=== PATIENT | male | born 1950 | race Caucasian/White ===

== ENCOUNTER → 2017-07-14 | Outpatient (CLI) | payer MEDICARE, OTHER ==
--- NOTE | 2017-07-14 14:42 | RADIOLOGY REPORT (SQ) ---
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 Additio nal selected color Doppler and spectral images recorded. LIMITATIONS: Large patient, midline bowel gas FINDINGS: PANCREAS: Midline pancreas unremarkable LIVER: No masses. Echotexture normal. LIVER VASCULATURE: Normal directional flow of the main portal vein and hepatic veins. GALLBLADDER: No stones. Normal wall thickness. No pericholecystic fluid. ULTRASOUND-DETECTED ZAVALA'S SIGN: Negative. INTRAHEPATIC DUCTS AND COMMON DUCT: CBD and intrahepatic ducts normal caliber. No filling defects. D istal most common duct not well seen INFERIOR VENA CAVA: Normal flow. AORTA: No gross aneurysm RIGHT KIDNEY: 10.3 cm in length with mild diffuse cortical thinning and increased echogenicity. No solid or suspicious masses. No hydronephrosis. No calcifications. LEFT KIDNEY: 11.3 cm in length. Mild diffuse cortical thinning and increased echogenicity. Lower pole kidney not well seen. No hydronephrosis. No calcifications. SPLEEN: 12 cm in length, stable. PERITONEAL AND PLEURAL SPACES: No ascites or effusions. OTHER: No other significant finding. IMPRESSION: No hepato splenomegaly No hydronephrosis. TECHNICAL DOCUMENTATION: JOB ID: [id number] [employer]- All Rights Reserved
== END ==
LOC: RAD 09:01
PROVIDERS: ATTEND Internal Medicine Hematology & Oncology
DX: D75.1 Secondary polycythemia (principal); R16.1 Splenomegaly, not elsewhere classified
CPT/HCPCS: 76700